=== PATIENT | male | born 1995 | race Caucasian/White ===

== ENCOUNTER 2018-05-22 05:53 | Observation (INO) | payer OTHER, SELFPAY ==
[2018-05-22] MEDS ORDERED: Dexamethasone 4 mg/ml Vial ONE (06:25)
[2018-05-22] MEDS ORDERED: Clindamycin/D5W 900 mg/50 ml Premix Bag ONE (06:25)
[2018-05-22] MEDS ORDERED: Bupivacaine/Epinephrine 0.25% 30 ML VIAL ONE (06:57)
[2018-05-22] MEDS ORDERED: Lidocaine 1% w/Epinephrine 1:100K 30 ML VIAL ONE (06:57)
[2018-05-22] MEDS ORDERED: Hydrocortisone 1% Cream 30 GM TUBE ONE (06:58)
[2018-05-22] MEDS ORDERED: Chlorhexidine Gluconate 15 ML UDCUP SSP ONE (07:08)
[2018-05-22] MEDS ORDERED: Fentanyl 100 MCG/2 ML VIAL ONE ×4 (07:08→14:46)
[2018-05-22] MEDS ORDERED: Oxymetazoline HCl 0.05% ( 15 ML ) ONE (07:17)
[2018-05-22] MEDS ORDERED: Midazolam HCl 2 mg/2 ml Vial ONE ×2 (07:26→11:26)
[2018-05-22] MEDS ORDERED: Meperidine HCl/PF 25 MG/ML VIAL ONE (11:54)
[2018-05-22] MEDS ORDERED: Promethazine HCl 25 MG/ML VIAL IM PRN (11:56)
[2018-05-22] MEDS ORDERED: Promethazine HCl 25 MG/ML VIAL SLOW IVP PRN (11:56)
[2018-05-22] MEDS ORDERED: Meperidine HCl/PF 25 MG/ML VIAL SLOW IVP PRN (11:56)
[2018-05-22] MEDS ORDERED: Ondansetron HCl/PF 4 MG/2 ML Vial IVP PRN (11:56)
--- NOTE | 2018-05-22 14:10 | OP ---
DATE OF PROCEDURE: 05/22/2018 SURGEON: Dr. Barrie Boyce PREOPERATIVE DIAGNOSES: 1. Failing mandibular hardware. 2. Mandibular sequestrum. 3. 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 POSTOPERATIVE DIAGNOSES: 1. Failing mandibular hardware. 2. Mandibular sequestrum. 3. 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 PROCEDURE PERFORMED: 1. Removal of mandibular hardware. 2. Debridement of mandible. 3. Extraction of teeth numbers 21, 22 and 24. 4. Placement of arch bars for MMF. ANESTHESIA: General nasoendotracheal anesthesia. TELEVISION ACTOR: Dr. Rothman. INDICATIONS FOR PROCEDURE: This is a 22-year-old male who sustained a mandibular fracture earlier in the year in 12/2017, open reduction internal fixation was performed by a surgeon in [place]. The pat ient failed scheduled followup and reports a sustained trauma to the jaw over the summer while workin g with a steel pipe to the face resulting in loss of a tooth, necrotic exposed bone intraorally and f ailing mandibular hardware. DESCRIPTION OF PROCEDURE: The patient was met in the preoperative holding area. Risks, benefits, an d alternatives of the procedure discussed in detail with the patient and the patient's family. Quest ions were sought and answered. Informed consent was obtained. The patient was taken to the operatin g room and to the OR table where a safety belt was secured, standard ASA monitors were attached and t he patient was noted to have stable vital signs. IV induction by Anesthesia with nasal endotracheal intubation x1 without complication. Endotracheal tube was secured in a standard head wrap fashion. The patient was prepped and draped in a standard fashion and a timeout was performed. The oropharynx was thoroughly suctioned. A moistened Ray-Britt throat pack was placed. Peridex mouth rinse and toothbrush was used throughout the oral cavity, 0.25% bupivacaine with 1:200,000 epinephrin e was administered as a left inferior alveolar nerve, lingual nerve and vestibular infiltration along the mandible. The previously placed IMF screws were removed from the maxilla and the mandible with a rongeur. The segmental arch bar in the mandible was removed as well. Grossly mobile tooth #6 was removed with a hemostat as well as the associated large alveolar sequestrum was exposed intraorally. Periodontal disease, mobility and exposed bone was associated with teeth #21 and 24 as well and a fo rceps was used to extract these teeth. Then, a sulcular incision was reflected with a distal buccal release near tooth #18 extending across the midline to the distal buccal of tooth #27. Subperiosteal dissection was performed to expose the previously placed tension band plate which was noted to have multiple loose screws. The screws and the plate were removed without complication. Dissection pedro nued to identify the mental nerve. Soft tissue was skeletonized in this region to prevent excessive traction on the nerve. Then, the inferior border plate was exposed. The plate and 4 screws were rem manas as well. It was noted at this time that there was good bony union along the inferior border of the mandible extending up the buccal plate to the defect where the sequestrum was removed and the ent artem lingual aspect of the mandibular cortex was fully intact without any defects or appreciable mobil ity. A rongeur Molt curet and a bone bur were used for debridement of the mandibular alveolus in the 21 through 24 area down to healthy bleeding bone. Copious irrigation with normal saline was perform ed of the buccal lingual flaps, a periosteal release and flap development was performed on the buccal flap where a primary closure could be obtained with a combination of 4-0 and 5-0 chromic sutures. A rch bars were then placed from first molar to first molar in the maxillary and mandibular arches usin g 24-gauge circumdental wires. The patient had a stable and repeatable occlusion preoperatively and intermaxillary fixation was performed with 24-gauge wire loops. The oropharynx was thoroughly suctio herb. The moistened Ray-Britt throat pack was placed before MMF. The patient was turned over to Anesth esia where he was extubated in the room and returned to the PACU in stable condition. DRAINS: None. SPECIMENS: None. COUNTS: Needle and sponge count verified as correct. ESTIMATED BLOOD LOSS: 100 mL. FLUIDS: 2100 mL. IMPLANTS: None. COMPLICATIONS: None.
[2018-05-22] MEDS ORDERED: Ketorolac Tromethamine 30 MG/ML VIAL ONE (14:33)
[2018-05-22] MEDS ORDERED: PROPOFOL 200 MG/20 ML VIAL ONE (14:33)
[2018-05-22] MEDS ORDERED: Ondansetron PF 4 MG/2 ML Vial ONE (14:33)
[2018-05-22] MEDS ORDERED: Lidocaine 1% PF 5 ML VIAL ONE (14:33)
[2018-05-22 16:29] VITALS: BMI 23.9
[2018-05-22] MEDS ORDERED: HYDROcodone/Acetaminophen 7.5/325 mg Tablet PO PRN (16:29)
[2018-05-22] MEDS ORDERED: Ondansetron PF 4 MG/2 ML Vial IVP PRN (16:30)
[2018-05-22] MEDS: Dextrose 5 %-0.45 % NaCl 1,000 ML IV SCH (16:40)
[2018-05-22] MEDS: HYDROcodone/Acetaminophen 7.5/325 mg Tablet PO PRN ×2 (16:46→21:33)
[2018-05-22] MEDS: Ibuprofen 800 MG TAB PO SCH (16:47)
[2018-05-22] MEDS: Clindamycin/D5W 900 MG in Premix Bag 1 BAG IVPB SCH (16:47)
[2018-05-23] MEDS: Ibuprofen 800 MG TAB PO SCH ×3 (00:06→12:06)
[2018-05-23] MEDS: Clindamycin/D5W 900 MG in Premix Bag 1 BAG IVPB SCH ×3 (00:07→17:11)
[2018-05-23] MEDS: Dextrose 5 %-0.45 % NaCl 1,000 ML IV SCH ×2 (02:06→09:57)
[2018-05-23] MEDS: HYDROcodone/Acetaminophen 7.5/325 mg Tablet PO PRN ×3 (02:06→10:19)
[2018-05-23] MEDS: Docusate Sodium 100 MG/10 ML UDCUP PO SCH (09:44)
[2018-05-23] MEDS: Hydrocodone-Acetamin 15 ML UDCUP PO PRN ×2 (17:11→22:05)
[2018-05-23] MEDS: Ibuprofen 100 MG/5 ML UDCUP PO SCH ×2 (22:59→23:06)
[2018-05-24] MEDS: Clindamycin/D5W 900 MG in Premix Bag 1 BAG IVPB SCH ×2 (01:01→08:24)
[2018-05-24] MEDS: Hydrocodone-Acetamin 15 ML UDCUP PO PRN ×2 (06:38→11:04)
[2018-05-24] MEDS: Ibuprofen 100 MG/5 ML UDCUP PO SCH ×2 (06:39→11:54)
[2018-05-24] MEDS: Docusate Sodium 100 MG/10 ML UDCUP PO SCH (08:27)
[2018-05-24 11:02] VITALS: BP 123/76; TEMP 97.7
== END 2018-05-24 12:24 | disposition home or self-care (01) ==
LOC: SDC 05:53 → SURG B 12:04
PROVIDERS: ADMIT Dentist Oral and Maxillofacial Surgery; ATTEND Dentist Oral and Maxillofacial Surgery
PROC: 0CDXXZ1 Extraction of Lower Tooth, Multiple, External Approach (ICD-10-PCS; principal; 2018-05-22)
PROC: 0NPW04Z Removal of Internal Fixation Device from Facial Bone, Open Approach (ICD-10-PCS; 2018-05-22)
PROC: 2W31X9Z Immobilization of Face using Wire (ICD-10-PCS; 2018-05-22)
DX: T84.298A Other mechanical complication of internal fixation device of other bones, initial encounter (principal); M27.2 Inflammatory conditions of jaws; K05.6 Periodontal disease, unspecified; K21.9 Gastro-esophageal reflux disease without esophagitis; J32.9 Chronic sinusitis, unspecified; F17.210 Nicotine dependence, cigarettes, uncomplicated; F17.290 Nicotine dependence, other tobacco product, uncomplicated; Z79.899 Other long term (current) drug therapy; Z91.048 Other nonmedicinal substance allergy status; Z98.890 Other specified postprocedural states; W22.8XXA Striking against or struck by other objects, initial encounter
CPT/HCPCS: 96361; 96365; 96366; 96374; 96375; 96376; G0378; J1100; J1885; J2001; J2175; J2250; J2270; J2405; J2704; J3010; J3490

== ENCOUNTER 2023-12-05 08:47 | Emergency (ER) | payer SELFPAY | END 2023-12-05 09:25 | LOC: ERS 08:47 | DX: F15.10 Other stimulant abuse, uncomplicated (principal) | CPT/HCPCS: 99282 ==